=== PATIENT | male | born 1960 | race Caucasian/White ===

== ENCOUNTER 2018-12-26 09:46 | Inpatient (IN) | payer MEDICAID, OTHER ==
[~2018-12-26] VITALS: Ht 170.2 cm; Wt 90.3 kg
[2018-12-26] VITALS (31 sets, daily range): BP systolic 102–166; BP diastolic 51–108; PULSE 86–107; RESP 13–22; Ht 170.2 cm; Wt 90.3 kg
[~2018-12-26 09:46] MED LIST: AMOX1TAB10 PO; ATOR40TA68 PO; METO-335 PO
[2018-12-26] MEDS ORDERED: morphine 4 MG/ML VIAL IV STA ×2 (10:31→12:32)
[2018-12-26] MEDS ORDERED: SOD CHLORIDE 0.9% 1,000 ML IV ONE (11:00)
[2018-12-26] MEDS ORDERED: metroNIDAZOLE 500 MG/NS (PMX) 100 ML IVPB ONE (11:00)
[2018-12-26] MEDS ORDERED: PIPER-TAZO 3.375 GM IV (PMX) 100 ML IVPB ONE ×2 (11:00→20:00)
[2018-12-26] MEDS ORDERED: ACETAMINOPHEN 325 MG TAB PO PRN (12:00)
[2018-12-26] MEDS ORDERED: ONDANSETRON 4 MG INJ IV PRN ×3 (12:00→16:00)
[2018-12-26] MEDS ORDERED: DIPHENHYDRAMINE 50 MG INJ IV PRN (14:00)
[2018-12-26] MEDS ORDERED: LABETALOL HCL 20MG INJ IV PRN (14:00)
[2018-12-26] MEDS ORDERED: HYDROmorphONE 1 MG/5 ML IV SYRINGE IV PRN ×3 (14:00)
[2018-12-26] MEDS ORDERED: KETOROLAC 30 MG INJ IV PRN (14:00)
[2018-12-26] MEDS ORDERED: MEPERIDINE 25 MG INJ IV PRN (14:00)
[2018-12-26] MEDS ORDERED: hydrALAzine 20 MG INJ IV PRN (14:00)
[2018-12-26] MEDS ORDERED: FENTAnyl 50 MCG/ML VIAL IV PRN ×3 (14:00)
[2018-12-26] MEDS ORDERED: BUPIVACAINE 0.5%/EPI (SDV) 30 ML INJ ONE (14:03)
[2018-12-26] MEDS ORDERED: CEFAZOLIN 1 GM INJ ONE (14:07)
[2018-12-26] MEDS ORDERED: PROPOFOL 20 ML ONE (14:07)
[2018-12-26] MEDS ORDERED: NEOSTIGMINE 3 MG/3 ML SYRINGE ONE (14:07)
[2018-12-26] MEDS ORDERED: GLYCOPYRROLATE 0.4 MG INJ ONE (14:07)
[2018-12-26] MEDS ORDERED: ROCURONIUM 50 MG INJ ONE ×2 (14:07→15:43)
[2018-12-26] MEDS ORDERED: FENTAnyl 50 MCG/ML VIAL ONE (14:08)
[2018-12-26] MEDS ORDERED: ROPIVACAINE 0.5 % 30 ML VIAL ONE (14:08)
[2018-12-26] MEDS ORDERED: ONDANSETRON 4 MG INJ ONE (14:37)
[2018-12-26] MEDS ORDERED: HYDROmorphONE 2 MG/ML SYG ONE (14:45)
[2018-12-26] MEDS ORDERED: METOPROLOL 5 MG INJ ONE (15:12)
[2018-12-26] MEDS ORDERED: PIPER-TAZO 3.375 GM IV (PMX) 100 ML IVPB SCH (15:30)
[2018-12-26] MEDS ORDERED: SUGAMMADEX SODIUM 200 MG/2 ML VIAL IV ONE (15:47)
[2018-12-26] MEDS ORDERED: morphine 2 MG INJ IV PRN (16:00)
[2018-12-26] MEDS ORDERED: OXYCODONE/ACETAMINOPHEN (5/325) TAB PO PRN (16:00)
[2018-12-26] MEDS: PIPER-TAZO 3.375 GM IV (PMX) 100 ML IVPB SCH (20:02)
[2018-12-26] MEDS: morphine 2 MG INJ IV PRN (21:07)
[2018-12-27 00:13] VITALS: BP 119/71; PULSE 115; RESP 19
[2018-12-27] MEDS: METOPROLOL 25 MG TAB PO SCH ×3 (00:59→22:56)
[2018-12-27] MEDS: PIPER-TAZO 3.375 GM IV (PMX) 100 ML IVPB SCH ×3 (03:02→19:47)
[2018-12-27] MEDS: morphine 2 MG INJ IV PRN ×4 (04:24→19:34)
[2018-12-27 04:58] VITALS: BP 123/74; PULSE 108; RESP 20
[2018-12-27 07:57] VITALS: BP 125/75; PULSE 96; RESP 18
[2018-12-27] MEDS: OXYCODONE/ACETAMINOPHEN (5/325) TAB PO PRN (11:44)
[2018-12-27 14:15] VITALS: BP 115/70; PULSE 90; RESP 16
[2018-12-27 20:15] VITALS: BP 112/84; PULSE 127; RESP 18
[2018-12-28] MEDS: morphine 2 MG INJ IV PRN ×6 (01:11→21:43)
[2018-12-28 02:41] VITALS: BP 139/96; PULSE 120; RESP 18
[2018-12-28] MEDS: PIPER-TAZO 3.375 GM IV (PMX) 100 ML IVPB SCH ×3 (03:38→19:53)
[2018-12-28] MEDS: PANTOPRAZOLE (EC) 40 MG TAB PO SCH (05:20)
[2018-12-28 07:41] VITALS: BP 131/87; PULSE 99; RESP 20
[2018-12-28] MEDS: METOPROLOL 25 MG TAB PO SCH ×2 (09:00→20:41)
[2018-12-28] MEDS: D5W-0.45 NACL + KCL 20 MEQ 1,000 ML IV SCH ×2 (10:20→19:30)
[2018-12-28] MEDS ORDERED: IOHEXOL 300MG/ML 150 ML BTL ONE (11:22)
[2018-12-28 15:13] VITALS: BP 141/87; PULSE 115; RESP 22
[2018-12-28 19:54] VITALS: BP 125/83; PULSE 125; RESP 18
[2018-12-29] MEDS: D5W-0.45 NACL + KCL 20 MEQ 1,000 ML IV SCH ×2 (01:37→14:39)
[2018-12-29 01:41] VITALS: BP 135/89; PULSE 108; RESP 18
[2018-12-29] MEDS: PIPER-TAZO 3.375 GM IV (PMX) 100 ML IVPB SCH ×3 (03:53→19:21)
[2018-12-29] MEDS: PANTOPRAZOLE (EC) 40 MG TAB PO SCH (05:35)
[2018-12-29 07:40] VITALS: BP 132/87; PULSE 102; RESP 20
[2018-12-29] MEDS: METOPROLOL 25 MG TAB PO SCH ×2 (08:46→20:42)
[2018-12-29] MEDS: morphine 2 MG INJ IV PRN (11:03)
[2018-12-29 14:00] VITALS: BP 131/77; PULSE 88; RESP 20
[2018-12-29 19:50] VITALS: BP 129/76; PULSE 85; RESP 20
[2018-12-29] MEDS: OXYCODONE/ACETAMINOPHEN (5/325) TAB PO PRN (20:47)
[2018-12-30 02:08] VITALS: BP 126/74; PULSE 78; RESP 18
[2018-12-30] MEDS: D5W-0.45 NACL + KCL 20 MEQ 1,000 ML IV SCH ×3 (02:39→21:30)
[2018-12-30] MEDS: PIPER-TAZO 3.375 GM IV (PMX) 100 ML IVPB SCH ×3 (02:43→20:22)
[2018-12-30] MEDS: PANTOPRAZOLE (EC) 40 MG TAB PO SCH (06:48)
[2018-12-30 07:39] VITALS: BP 125/80; PULSE 90; RESP 18
[2018-12-30] MEDS: METOPROLOL 25 MG TAB PO SCH ×2 (08:57→20:22)
[2018-12-30] MEDS: OXYCODONE/ACETAMINOPHEN (5/325) TAB PO PRN ×2 (12:04→19:25)
[2018-12-30 14:58] VITALS: BP 118/75; PULSE 77; RESP 18
[2018-12-30 19:15] VITALS: BP 137/82; PULSE 86; RESP 20
[2018-12-31] MEDS: OXYCODONE/ACETAMINOPHEN (5/325) TAB PO PRN ×2 (01:56→10:41)
[2018-12-31 02:10] VITALS: BP 135/79; PULSE 80; RESP 20
[2018-12-31] MEDS: PIPER-TAZO 3.375 GM IV (PMX) 100 ML IVPB SCH ×2 (03:50→12:12)
[2018-12-31] MEDS: D5W-0.45 NACL + KCL 20 MEQ 1,000 ML IV SCH ×2 (03:51→07:30)
[2018-12-31] MEDS: PANTOPRAZOLE (EC) 40 MG TAB PO SCH (05:10)
[2018-12-31 07:29] VITALS: BP 126/78; PULSE 91; RESP 20
[2018-12-31] MEDS: METOPROLOL 25 MG TAB PO SCH (08:54)
[2018-12-31 14:37] VITALS: BP 126/77; PULSE 84; RESP 20
== END 2018-12-31 16:15 | disposition home health service (06) | DRG 330 ==
LOC: E/R 09:46 → REC 11:53 → SUATTDRO 14:20 → MS1 18:08
PROVIDERS: ADMIT Internal Medicine; ATTEND Internal Medicine
PROC: 0DJD4ZZ Inspection of Lower Intestinal Tract, Percutaneous Endoscopic Approach (ICD-10-PCS; 2018-12-26)
PROC: 0DTJ4ZZ Resection of Appendix, Percutaneous Endoscopic Approach (ICD-10-PCS; 2018-12-26)
PROC: 0DTH0ZZ Resection of Cecum, Open Approach (ICD-10-PCS; principal; 2018-12-26 14:00)
DX: K35.32 Acute appendicitis with perforation, localized peritonitis, and gangrene, without abscess (principal); K56.7 Ileus, unspecified; I10 Essential (primary) hypertension; E78.5 Hyperlipidemia, unspecified; I25.10 Atherosclerotic heart disease of native coronary artery without angina pectoris; B96.5 Pseudomonas (aeruginosa) (mallei) (pseudomallei) as the cause of diseases classified elsewhere; B95.0 Streptococcus, group A, as the cause of diseases classified elsewhere; Z95.1 Presence of aortocoronary bypass graft; Z95.5 Presence of coronary angioplasty implant and graft
CPT/HCPCS: 36415; 71045; 74018; 74176; 74250; 80048; 80053; 81001; 83690; 84484; 85025; 87070; 87102; 87116; 88304; 93005; 96365; 96375; 97161; J0690; J1170; J1200; J2270; J2405; J2543; J2710; J2795; J3010; J3480; J7030; Q9967